=== PATIENT | male | born 1950 | race Caucasian/White ===

== ENCOUNTER 2017-01-26 12:27 | Emergency (ER) | payer MEDICARE, OTHER ==
[~2017-01-26] VITALS: Ht 180.3 cm; Wt 135.0 kg
[~2017-01-26 12:27] MED LIST: ASPIR-LOW81 MG PO; ASPIRIN 32325 MG/TAB PO; CEFTIN500 MG PO; CENTRUM SILVER1 TA1 PO; FISH OIL CONC1000 MG PO; FISH OIL1 IU PO; FLOMAX 0.40.4 MG/CAP PO; GLUCOSAMINE PO; IBUPROFEN600 MG PO; LEVAQUIN 5500 MG/TAB PO; LEVAQUIN 750MG750 M1 PO; LOPID 600M600 MG/TAB PO; LOPRESSOR 225 MG/TAB PO; LOPRESSOR 550 MG/TAB PO; MAG-OX 400400 MG/TAB PO; MAGNESIUM PO; MICARDIS HCT 121 TAB PO; MOTRIN 600600 MG/TAB PO; MVI; NIASPAN 500MG500 MG PO; NITROSTAT0.4 MG/TAB SL; NORCO 325 MG-51 TAB PO; OMEGA 31000 MG PO; PERCOCET 325 MG1 TA2 PO; PLAVIX 75MG TAB75 MG PO; TRILIPIX 135MG PO; ZESTRIL 10MG10 MG PO; ZOFRAN 4MG T4 MG/TAB PO; [UNRECOGNIZED DRUG - OTHER] PO
[2017-01-26 12:35] VITALS: TEMP 97
[2017-01-26 12:51] LABS: BASO # 0.1 (0.0-0.2); EOS # 0.2 (0.0-0.7); EOS % 2.5 % (0-4.0); GRAN % 49.6 % (42.2-75.2); HEMATOCRIT 44.3 % (42.0-52.0); HEMOGLOBIN 15.9 g/dl (13.5-18.0); LYMPH # 2.4 (1.2-3.4); LYMPH % 39.6 % (20.0-51.0); MEAN CELL VOLUME 96 fl (80.0-100.0); MEAN CORPUSCULAR HEMOGLOBIN 35 pg (27.0-31.0); MEAN CORPUSCULAR HGB CONC 36 g/dl (33.0-37.0); MEAN PLATELET VOLUME 8.6 fl (7.4-10.4); MONO # 0.4 (0.1-0.6); MONO % 7.1 % (1.7-9.3); PLATELET COUNT 225 K/mm3 (130-400); REDCELL DISTRIBUTION WIDTH-CV 12.5 % (11.5-14.5); WHITE BLOOD COUNT 5.9 K/mm3 (4.8-10.8)
[2017-01-26 12:53] LABS: INR 1.1 (0.8-3.0); PROTHROMBIN TIME 11.7 SECONDS (9.7-12.8)
[2017-01-26 13:01] LABS: ADJUSTED CALCIUM 9.5 mg/dL (8.4-10.2); ALANINE AMINOTRANSFERASE 33 U/L (21-72); ALBUMIN 4.3 gm/dL (3.5-5.0); ALKALINE PHOSPHATASE 83 U/L (50-136); ANION GAP 12 mmol/L (7-16); BILIRUBIN,TOTAL 0.7 mg/dL (0.0-1.0); BLOOD UREA NITROGEN 19 mg/dL (9-20); CALCIUM 9.7 mg/dL (8.4-10.2); CARBON DIOXIDE 23 mmol/L (22-30); CHLORIDE 104 mmol/L (98-107); CREATININE, serum 0.84 mg/dL (0.66-1.25); GLUCOSE 133 mg/dL (74-106); LIPASE 121 U/L (23-300); MAGNESIUM 1.9 mg/dL (1.6-2.3); POTASSIUM 3.9 mmol/L (3.4-5.0); SODIUM 139 mmol/L (137-145); TOTAL PROTEIN 7.2 gm/dL (6.4-8.2)
[2017-01-26 13:13] LABS: B-TYPE NATRIURETIC PEPTIDE 158 pg/mL (0-125)
[2017-01-26 13:14] LABS: TROPONIN-I < 0.012 ng/mL (0.000-0.034)
[2017-01-26 15:22] VITALS: BP 174/104; PULSE 84
== END 2017-01-26 15:23 | disposition short-term general hospital (02) ==
LOC: COL.ER 12:27
PROVIDERS: Emergency Medicine
DX: I48.92 Unspecified atrial flutter (principal); R07.9 Chest pain, unspecified; I10 Essential (primary) hypertension; I25.10 Atherosclerotic heart disease of native coronary artery without angina pectoris; Z95.5 Presence of coronary angioplasty implant and graft

== ENCOUNTER 2017-03-15 20:21 | Emergency (ER) | payer MEDICARE, OTHER ==
[~2017-03-15] VITALS: Ht 180.3 cm; Wt 125.0 kg
[2017-03-15 20:23] VITALS: BP 149/83; PULSE 74; TEMP 99
[2017-03-15] MEDS ORDERED: ELIQUIS 5MG PO (20:51)
[2017-03-15] MEDS ORDERED: ASPIRIN E.C. 8181 MG PO (20:52)
[2017-03-15] MEDS ORDERED: PLAVIX 75MG TAB75 MG PO (20:53)
[2017-03-15] MEDS ORDERED: LIPITOR 40MG TA40 MG PO (20:53)
[2017-03-15] MEDS ORDERED: TOPROL XL 25MG25 MG PO (20:54)
[2017-03-15] MEDS ORDERED: TRILIPIX 135MG PO (20:54)
[2017-03-15] MEDS ORDERED: OMEGA-3 1000 MG1 CAP PO (20:55)
[2017-03-15] MEDS ORDERED: COMPLETE SENIOR1 TA1 PO (20:56)
[2017-03-15] MEDS ORDERED: MAGNESIUM500 MG PO (20:56)
== END 2017-03-15 20:45 | disposition home or self-care (01) ==
LOC: COL.ER 20:21
DX: S90.112A Contusion of left great toe without damage to nail, initial encounter (principal); I48.91 Unspecified atrial fibrillation; Z79.01 Long term (current) use of anticoagulants; X58.XXXA Exposure to other specified factors, initial encounter; I10 Essential (primary) hypertension; I25.10 Atherosclerotic heart disease of native coronary artery without angina pectoris

== ENCOUNTER 2017-03-19 05:38 | Emergency (ER) | payer MEDICARE, OTHER ==
[~2017-03-19] VITALS: Ht 180.3 cm; Wt 125.0 kg
[~2017-03-19 05:38] MED LIST changes: +ASPIRIN E.C. 8181 MG PO; +COMPLETE SENIOR1 TA1 PO; +ELIQUIS 5MG PO; +LIPITOR 40MG TA40 MG PO; +MAGNESIUM500 MG PO; +OMEGA-3 1000 MG1 CAP PO; +TOPROL XL 25MG25 MG PO
[2017-03-19 05:41] VITALS: TEMP 97.7
[2017-03-19 06:24] LABS: BASO % 0.6 % (0.0-2.0); EOS # 0.2 (0.0-0.7); EOS % 2.5 % (0-4.0); GRAN # 3.4 (1.4-6.5); GRAN % 53.2 % (42.2-75.2); HEMATOCRIT 41.3 % (42.0-52.0); HEMOGLOBIN 14.5 g/dl (13.5-18.0); LYMPH # 2.3 (1.2-3.4); MEAN CELL VOLUME 96 fl (80.0-100.0); MEAN CORPUSCULAR HEMOGLOBIN 34 pg (27.0-31.0); MEAN CORPUSCULAR HGB CONC 35 g/dl (33.0-37.0); MEAN PLATELET VOLUME 8.7 fl (7.4-10.4); MONO # 0.5 (0.1-0.6); MONO % 7.5 % (1.7-9.3); PLATELET COUNT 218 K/mm3 (130-400); RED BLOOD COUNT 4.29 M/mm3 (4.20-5.60); REDCELL DISTRIBUTION WIDTH-CV 12.6 % (11.5-14.5); WHITE BLOOD COUNT 6.4 K/mm3 (4.8-10.8)
[2017-03-19 06:40] LABS: ADJUSTED CALCIUM 9.3 mg/dL (8.4-10.2); ALANINE AMINOTRANSFERASE 45 U/L (21-72); ALBUMIN 4.2 gm/dL (3.5-5.0); ALKALINE PHOSPHATASE 60 U/L (50-136); ANION GAP 12 mmol/L (7-16); BILIRUBIN,TOTAL 1.1 mg/dL (0.0-1.0); BLOOD UREA NITROGEN 15 mg/dL (9-20); CALCIUM 9.5 mg/dL (8.4-10.2); CARBON DIOXIDE 22 mmol/L (22-30); CHLORIDE 103 mmol/L (98-107); CREATININE, serum 0.75 mg/dL (0.66-1.25); GLUCOSE 117 mg/dL (74-106); LIPASE 75 U/L (23-300); POTASSIUM 3.6 mmol/L (3.4-5.0); SODIUM 138 mmol/L (137-145)
[2017-03-19 06:42] LABS: C-REACTIVE PROTEIN < 0.5 mg/dL (0.0-0.9)
[2017-03-19 07:51] LABS: PH 7 (5-8); SQUAMOUS EPITHELIAL None Seen /hpf; URINE APPEARANCE Cloudy; URINE BACTERIA None Seen /hpf; URINE BILIRUBIN Negative (NEGATIVE); URINE BLOOD 3+ (NEGATIVE); URINE COLOR Yellow; URINE GLUCOSE Negative (NEGATIVE); URINE KETONE Negative (NEGATIVE); URINE RBC >50 /hpf; URINE UROBILINOGEN Negative (NEGATIVE)
[2017-03-19] MEDS ORDERED: ZOFRAN 4MG T4 MG/TAB PO (08:15)
[2017-03-19] MEDS ORDERED: FLOMAX 0.40.4 MG/CAP PO (08:15)
[2017-03-19] MEDS ORDERED: NORCO 325 MG-51 TAB PO (08:15)
[2017-03-19 08:25] VITALS: BP 141/94; PULSE 72
== END 2017-03-19 08:31 | disposition home or self-care (01) ==
LOC: COL.ER 05:38
PROVIDERS: Emergency Medicine
DX: N20.1 Calculus of ureter (principal); Z79.01 Long term (current) use of anticoagulants; I10 Essential (primary) hypertension; I48.91 Unspecified atrial fibrillation; I25.10 Atherosclerotic heart disease of native coronary artery without angina pectoris; Z95.5 Presence of coronary angioplasty implant and graft; R10.31 Right lower quadrant pain; Z87.891 Personal history of nicotine dependence
CPT/HCPCS: J2270; J2405; J7030; Q9967

== ENCOUNTER 2017-03-22 05:11 | Day surgery (SDC) | payer MEDICARE, OTHER ==
[~2017-03-22] VITALS: Ht 180.3 cm; Wt 123.4 kg
[2017-03-22] VITALS (7 sets, daily range): BP systolic 104–151; BP diastolic 59–74; PULSE 69–76; TEMP 97.8–99.4
[2017-03-22] MEDS ORDERED: COLACE 100100 MG/CAP PO (06:32)
[2017-03-22] MEDS ORDERED: PERCOCET 325 MG1 TA2 PO (06:33)
[2017-03-22] MEDS ORDERED: LEVAQUIN 5500 MG/TA1 PO (06:34)
== END 2017-03-22 11:00 | disposition home or self-care (01) ==
LOC: SDCO 05:11
DX: N20.1 Calculus of ureter (principal); I20.9 Angina pectoris, unspecified; I48.91 Unspecified atrial fibrillation; Z79.01 Long term (current) use of anticoagulants; I10 Essential (primary) hypertension; I25.10 Atherosclerotic heart disease of native coronary artery without angina pectoris; E78.1 Pure hyperglyceridemia; Z96.652 Presence of left artificial knee joint; Z95.5 Presence of coronary angioplasty implant and graft; Z87.891 Personal history of nicotine dependence; Z80.3 Family history of malignant neoplasm of breast; Z80.0 Family history of malignant neoplasm of digestive organs; H91.90 Unspecified hearing loss, unspecified ear; N39.0 Urinary tract infection, site not specified; I73.9 Peripheral vascular disease, unspecified; G47.33 Obstructive sleep apnea (adult) (pediatric); E66.01 Morbid (severe) obesity due to excess calories; M47.897 Other spondylosis, lumbosacral region; M10.9 Gout, unspecified; G89.29 Other chronic pain
CPT/HCPCS: C1769; C2617; J0690; J1100; J1885; J2405; J2704; J3010; J7120; Q9967

== ENCOUNTER 2017-05-03 11:43 | Outpatient (RCR) | payer MEDICARE, OTHER ==
[~2017-05-03 11:43] MED LIST changes: +COLACE 100100 MG/CAP PO; +LEVAQUIN 5500 MG/TA1 PO
== END 2017-05-05 | disposition home or self-care (01) ==
LOC: COL.CR
DX: Z48.812 Encounter for surgical aftercare following surgery on the circulatory system (principal); Z95.5 Presence of coronary angioplasty implant and graft

== ENCOUNTER 2017-05-15 11:52 | Outpatient (RCR) | payer MEDICARE, OTHER | END 2017-05-17 05:53 | disposition home or self-care (01) | LOC: COL.CR 11:52 | DX: Z48.812 Encounter for surgical aftercare following surgery on the circulatory system (principal); Z95.5 Presence of coronary angioplasty implant and graft ==

== ENCOUNTER 2017-05-22 05:04 | Day surgery (SDC) | payer MEDICARE, OTHER ==
[~2017-05-22] VITALS: Ht 182.9 cm; Wt 121.0 kg
[2017-05-22] VITALS (7 sets, daily range): BP systolic 108–127; BP diastolic 64–88; PULSE 63–78; TEMP 97.6–97.7
== END 2017-05-22 12:00 | disposition home or self-care (01) ==
LOC: SDCO 05:04
DX: N20.1 Calculus of ureter (principal); I48.91 Unspecified atrial fibrillation; I25.119 Atherosclerotic heart disease of native coronary artery with unspecified angina pectoris; I10 Essential (primary) hypertension; I25.2 Old myocardial infarction; G47.33 Obstructive sleep apnea (adult) (pediatric); E78.1 Pure hyperglyceridemia; M19.90 Unspecified osteoarthritis, unspecified site; N40.0 Benign prostatic hyperplasia without lower urinary tract symptoms; E66.01 Morbid (severe) obesity due to excess calories; Z95.5 Presence of coronary angioplasty implant and graft; Z96.652 Presence of left artificial knee joint; Z79.01 Long term (current) use of anticoagulants; Z87.891 Personal history of nicotine dependence; Z80.3 Family history of malignant neoplasm of breast; Z80.0 Family history of malignant neoplasm of digestive organs; Z82.49 Family history of ischemic heart disease and other diseases of the circulatory system
CPT/HCPCS: C1769; C2617; J0690; J1100; J2405; J2704; J3010; J7120

== ENCOUNTER 2018-12-01 23:35 | Emergency (ER) | payer MEDICARE, OTHER ==
[~2018-12-01] VITALS: Ht 180.3 cm; Wt 115.9 kg
[2018-12-01 23:38] VITALS: TEMP 97.7
[2018-12-02 00:32] LABS: BASO % 0.5 % (0.0-2.0); EOS # 0.4 (0.0-0.7); EOS % 4.3 % (0-4.0); GRAN # 5.3 (1.4-6.5); GRAN % 63.4 % (42.2-75.2); HEMATOCRIT 35.5 % (42.0-52.0); HEMOGLOBIN 12.6 g/dl (13.5-18.0); LYMPH # 1.7 (1.2-3.4); LYMPH % 20.1 % (20.0-51.0); MEAN CELL VOLUME 97 fl (80.0-100.0); MEAN CORPUSCULAR HEMOGLOBIN 34 pg (27.0-31.0); MEAN CORPUSCULAR HGB CONC 36 g/dl (33.0-37.0); MEAN PLATELET VOLUME 8.9 fl (7.4-10.4); MONO # 0.9 (0.1-0.6); MONO % 11.1 % (1.7-9.3); PLATELET COUNT 228 K/mm3 (130-400); RED BLOOD COUNT 3.68 M/mm3 (4.20-5.60); REDCELL DISTRIBUTION WIDTH-CV 12.7 % (11.5-14.5)
[2018-12-02 00:43] LABS: ALBUMIN 3.7 gm/dL (3.5-5.0); BILIRUBIN,TOTAL 0.8 mg/dL (0.0-1.0); CALCIUM 9.1 mg/dL (8.4-10.2); CREATININE, serum 0.76 mg/dL (0.66-1.25); MAGNESIUM 2.3 mg/dL (1.6-2.3); POTASSIUM 4.1 mmol/L (3.4-5.0); TOTAL PROTEIN 6.5 gm/dL (6.4-8.2)
[2018-12-02] MEDS ORDERED: FLEXERIL 1010 MG/TAB PO (01:20)
[2018-12-02 01:30] VITALS: BP 123/69; PULSE 82
== END 2018-12-02 01:36 | disposition home or self-care (01) ==
LOC: COL.ER 23:35
PROVIDERS: Emergency Medicine
DX: T81.9XXA Unspecified complication of procedure, initial encounter (principal); R25.2 Cramp and spasm; I25.10 Atherosclerotic heart disease of native coronary artery without angina pectoris; Z79.01 Long term (current) use of anticoagulants; I10 Essential (primary) hypertension; E78.5 Hyperlipidemia, unspecified; Z87.442 Personal history of urinary calculi; Z95.9 Presence of cardiac and vascular implant and graft, unspecified; Z87.891 Personal history of nicotine dependence; Z79.82 Long term (current) use of aspirin

== ENCOUNTER 2023-09-30 18:19 | Emergency (ER) | payer MEDICARE, OTHER ==
[~2023-09-30] VITALS: Ht 182.9 cm; Wt 110.9 kg
[~2023-09-30 18:19] MED LIST changes: +FLEXERIL 1010 MG/TAB PO
[2023-09-30 19:12] LABS: BASO % 0.4 % (0.0-2.0); EOS % 0.3 % (0.0-4.0); GRAN # 7.4 K/mm3 (1.4-6.5); GRAN % 76.6 % (42.2-75.2); HEMOGLOBIN 14.9 g/dl (13.5-18.0); LYMPH # 1.2 K/mm3 (1.2-3.4); LYMPH % 12.9 % (20.0-51.0); MEAN CELL VOLUME 98 fl (80.0-100.0); MEAN CORPUSCULAR HEMOGLOBIN 34 pg (27-31); MEAN CORPUSCULAR HGB CONC 35 g/dl (33.0-37.0); MONO # 0.9 K/mm3 (0.1-0.6); MONO % 9.3 % (1.7-9.3); PLATELET COUNT 166 K/mm3 (130-400); RED BLOOD COUNT 4.41 M/mm3 (4.20-5.60); REDCELL DISTRIBUTION WIDTH-CV 13.2 % (11.5-14.5)
[2023-09-30 19:29] LABS: ALBUMIN 3.6 gm/dL (3.4-4.8); BILIRUBIN,TOTAL 1.1 mg/dL (0.2-1.2); CREATININE, serum 0.7 mg/dL (0.72-1.25); POTASSIUM 3.7 mmol/L (3.5-4.5); TOTAL PROTEIN 6.7 gm/dL (6.2-8.1)
[2023-09-30] MEDS ORDERED: ZITHROMAX Z PA250 MG PO (20:07)
[2023-09-30 20:22] VITALS: BP 139/82; PULSE 87; TEMP 97.3
== END 2023-09-30 20:22 | disposition home or self-care (01) ==
LOC: COL.ER 18:19
PROVIDERS: Family Medicine
DX: J20.9 Acute bronchitis, unspecified (principal)
CPT/HCPCS: J7030

== ENCOUNTER 2024-01-03 10:43 | Observation (INO) | payer MEDICARE, OTHER ==
[~2024-01-03] VITALS: Ht 180.3 cm; Wt 117.2 kg
[~2024-01-03 10:43] MED LIST changes: +ASPIRIN 81M81 MG/TA2 PO; -ASPIRIN E.C. 8181 MG PO; +MAGNESIUM200 MG PO; -MAGNESIUM500 MG PO; +ZITHROMAX Z PA250 MG PO
[2024-01-03 11:14] LABS: BASO # 0.1 K/mm3 (0.0-0.2); EOS # 0.1 K/mm3 (0.0-0.7); GRAN # 5.9 K/mm3 (1.4-6.5); GRAN % 70.8 % (42.2-75.2); HEMATOCRIT 43.7 % (42.0-52.0); HEMOGLOBIN 15.2 g/dl (13.5-18.0); LYMPH # 1.5 K/mm3 (1.2-3.4); LYMPH % 18.5 % (20.0-51.0); MEAN CELL VOLUME 97 fl (80.0-100.0); MEAN CORPUSCULAR HEMOGLOBIN 34 pg (27-31); MEAN CORPUSCULAR HGB CONC 35 g/dl (33.0-37.0); MEAN PLATELET VOLUME 8.5 fl (7.4-10.4); MONO # 0.7 K/mm3 (0.1-0.6); PLATELET COUNT 273 K/mm3 (130-400); RED BLOOD COUNT 4.52 M/mm3 (4.20-5.60); REDCELL DISTRIBUTION WIDTH-CV 13.2 % (11.5-14.5)
[2024-01-03] MEDS ORDERED: NS 1,000 ML IV ONE (11:15)
[2024-01-03] MEDS ORDERED: Morphine 4 MG/ML VIAL IV ONE (11:15)
[2024-01-03] MEDS ORDERED: Acetaminophen 325 MG TAB PO ONE (11:15)
[2024-01-03 11:29] LABS: INR 1.5 (0.8-3.0); PROTHROMBIN TIME 16.6 SECONDS (9.7-12.8)
[2024-01-03 11:48] LABS: ALBUMIN 3.6 g/dL (3.4-4.8); BILIRUBIN,TOTAL 1.1 mg/dL (0.2-1.2); C-REACTIVE PROTEIN 1.8 mg/dL (0.00-0.50); CALCIUM 9.5 mg/dL (8.4-10.2); CREATININE, serum 0.7 mg/dL (0.72-1.25); TOTAL PROTEIN 6.9 g/dl (6.2-8.1)
[2024-01-03 13:00] VITALS: BP_SYST 158
[2024-01-03] MEDS ORDERED: LORazepam 2 MG/ML 1 ML VIAL IV ONE (13:15)
[2024-01-03] MEDS ORDERED: fentaNYL 50 MCG/ML 2 ML VIAL IV ONE (13:15)
[2024-01-03] MEDS ORDERED: NATURAL IRON65 MG PO (14:13)
[2024-01-03] MEDS ORDERED: SINEMET 25/101 UDTAB PO (16:13)
[2024-01-03] MEDS ORDERED: Docusate Sodium 100 MG CAP PO PRN (16:30)
[2024-01-03] MEDS ORDERED: Ondansetron 4 MG/2 ML VIAL IV PRN (16:30)
[2024-01-03] MEDS ORDERED: Polyethylene Glycol 3350 17 GM PDS PO PRN (16:30)
[2024-01-03] MEDS ORDERED: oxyCODONE 5 MG TAB PO PRN ×2 (16:45)
[2024-01-03] MEDS ORDERED: fentaNYL 50 MCG/ML 2 ML VIAL IV PRN ×2 (16:45→17:00)
[2024-01-03 16:52] VITALS: BP 154/74; PULSE 93; TEMP 97.3
[2024-01-03] MEDS ORDERED: Acetaminophen 500 MG TAB PO SCH (17:00)
[2024-01-03 17:22] VITALS: BP_SYST 154
--- NOTE | 2024-01-03 18:30 | NUR ---
Patient admitted to room 327. Alert and oriented. Supportive at bedside. Med rec completed with patient and . Dinner ordered and he tolerated well. Pain managed at this time with scheduled tylenol. Brusing noted to Right hip and thigh. Dressing intact. Will report off to nightnurse
[2024-01-03 19:54] VITALS: BP 122/71; PULSE 83; TEMP 98.1
[2024-01-03 20:00] VITALS: BP_SYST 122
[2024-01-03] MEDS ORDERED: Apixaban 5 MG TAB PO SCH (21:00)
[2024-01-04] VITALS (13 sets, daily range): BP systolic 110–144; BP diastolic 62–78; PULSE 61–85; TEMP 97.4–98.1
[2024-01-04 06:56] LABS: BASO # 0.1 K/mm3 (0.0-0.2); BASO % 0.7 % (0.0-2.0); EOS # 0.1 K/mm3 (0.0-0.7); EOS % 1.2 % (0.0-4.0); LYMPH # 1.5 K/mm3 (1.2-3.4); LYMPH % 15.7 % (20.0-51.0); MEAN CELL VOLUME 97 fl (80.0-100.0); MEAN CORPUSCULAR HGB CONC 34 g/dl (33.0-37.0); MEAN PLATELET VOLUME 9.1 fl (7.4-10.4); MONO # 0.6 K/mm3 (0.1-0.6); MONO % 6.7 % (1.7-9.3); PLATELET COUNT 255 K/mm3 (130-400); RED BLOOD COUNT 3.54 M/mm3 (4.20-5.60); REDCELL DISTRIBUTION WIDTH-CV 13.2 % (11.5-14.5)
--- NOTE | 2024-01-04 07:00 | NUR ---
PATIENT AWAKE AND ALERT, SITTING UP I BED. PATIENT DENIES ANY NEEDS OR COMPLAINTS AT THIS TIME. FALL PRECAUTIONS IN PLACE. CALL LIGHT WITHI REACH.
[2024-01-04 07:16] LABS: CALCIUM 8.5 mg/dL (8.4-10.2); CREATININE, serum 0.65 mg/dL (0.72-1.25); POTASSIUM 3.8 mEq/L (3.5-4.5)
[2024-01-04 07:38] LABS: HEMATOCRIT 34.3 % (42.0-52.0); HEMOGLOBIN 11.8 g/dl (13.5-18.0); MEAN CORPUSCULAR HEMOGLOBIN 33 pg (27-31)
--- NOTE | 2024-01-04 07:51 | NUR ---
PATIENT ASSESSMENT COMPLETE. SWELLING AND TIGHTNESS NOTED TO R HIP. RLE ELEVATED AND ICE PLACED TO R HIP. PATIENT STATED TYLENOL HELPS THE BEST WITH PAIN. PATIENT SAT UP EATING BREAKFAST. PATIENT DENIES ANY NEEDS OR COMPLAINTS AT THIS TIME. FALL PRECAUTIONS IN PLACE. CALL LIGHT WIHTIN REACH.
[2024-01-04] MEDS ORDERED: Polyethylene Glycol 3350 17 GM PDS PO SCH (11:08)
[2024-01-04] MEDS ORDERED: Ketorolac 15 MG/ML VIAL IV ONE (11:15)
--- NOTE | 2024-01-04 12:56 | NUR ---
Data: Patient declined Machine Etcher services offered during Machine Etcher rounds because his was visiting. He wanted to spend time with her. Plan of Care: Chaplains will remain available as needed/requested while Patient is admitted to this hospital.
--- NOTE | 2024-01-04 15:09 | NUR ---
Advanced Manufacturing Associate met with patient and at bedside to discuss discharge planning. Patient and /ANNEMARIE Irvin ([phone]) live in [place]. Patient sees Dr. Pratt as his PCP and uses [facility]. Patient has a walker cane, shower chair, grab bars and CPAP at home. Patient states he is independent with all activities and has been attending OP physical therapy since his surgery last week. Patient plans to resume OP PT at discharge. No other needs identified at this time. Discharge plan: home with OP therapy
--- NOTE | 2024-01-04 16:50 | NUR ---
PATIENT VOICES GOOD PAIN CONTROL WITH ELIJAH HOSE STOCKINGS AND ICE TO R HIP. RICARDONET DENIES ANY NEEDS OR COMPLAINTS AT THIS TIME. CALL LIGHT WITHIN REACH, FALL PRECAUTIONS
[2024-01-04] MEDS ORDERED: Sennosides/Docusate 8.6-50 MG TAB PO SCH (21:00)
[2024-01-05] VITALS (12 sets, daily range): BP systolic 119–155; BP diastolic 68–84; PULSE 71–87; TEMP 97.3–98.5
[2024-01-05 06:30] LABS: BASO # 0.1 K/mm3 (0.0-0.2); BASO % 0.7 % (0.0-2.0); EOS # 0.3 K/mm3 (0.0-0.7); EOS % 3.1 % (0.0-4.0); GRAN % 67.8 % (42.2-75.2); HEMOGLOBIN 11.7 g/dl (13.5-18.0); LYMPH # 1.9 K/mm3 (1.2-3.4); LYMPH % 21.1 % (20.0-51.0); MEAN CELL VOLUME 96 fl (80.0-100.0); MEAN CORPUSCULAR HEMOGLOBIN 34 pg (27-31); MEAN CORPUSCULAR HGB CONC 35 g/dl (33.0-37.0); MEAN PLATELET VOLUME 9.1 fl (7.4-10.4); MONO # 0.6 K/mm3 (0.1-0.6); MONO % 6.7 % (1.7-9.3); PLATELET COUNT 267 K/mm3 (130-400); RED BLOOD COUNT 3.47 M/mm3 (4.20-5.60); REDCELL DISTRIBUTION WIDTH-CV 13.2 % (11.5-14.5)
[2024-01-05 06:44] LABS: HEMATOCRIT 33.4 % (42.0-52.0)
[2024-01-05 06:52] LABS: CALCIUM 8.4 mg/dL (8.4-10.2); CREATININE, serum 0.65 mg/dL (0.72-1.25); POTASSIUM 3.8 mEq/L (3.5-4.5)
--- NOTE | 2024-01-05 09:31 | NUR ---
Patient alert and oriented x4. Shift assessment complete, denies need for PRN pain medication this morning. Right hip site CDI. Edema noted to bilateral lower extremities, SCDs and ELIJAH hose on. States last BM was two days ago, scheduled miralax administered in water. Voiding with urinal. States he is ready to be at home, does want to continue PT. Call light within reach, all needs met at this time.
[2024-01-05 15:12] LABS: COLLECTION METHOD CLEAN CATCH
[2024-01-05 15:17] LABS: URINE APPEARANCE CLEAR (CLEAR/HAZY); URINE BLOOD NEGATIVE (NEGATIVE); URINE COLOR YELLOW (YELLOW); URINE GLUCOSE NEGATIVE (NEGATIVE); URINE KETONE NEGATIVE (NEGATIVE); URINE NITRATE NEGATIVE (NEGATIVE); URINE PROTEIN(semi-quant) NEGATIVE (NEGATIVE)
--- NOTE | 2024-01-05 17:38 | NUR ---
Notified by [facility] that patient voiced concerns with voiding. States he has had trouble voiding and emptying bladder. Per PA patient states he hasn't voided in a while. Patient voids 100-400ml every 1-2hr in urinal noted by this nurse and PCT. Urine is yellow and clear. PRN bladderscan ordered and UA. UA obtained and noted to be negative. Patient has continued to void, stated to PCT he has to pee "every 10 minutes it feels like." Patient complains of pain to right hip increasing, PRN roxicodone and scheduled tylenol administered. Resting in bed with call light in reach, all needs met at this time.
--- NOTE | 2024-01-05 18:22 | NUR ---
Patient complains of increased stiffness and pain to right leg. Area swollen and bruised, no redness noted. No increased warmth noted. Patient wanted ankle range of motion performed for him, this nurse rotated ankle a few times which patient states helped. SCDs put back on patient, right lower extremity elevated with pillows. Call light within reach, all needs met at this time.
[2024-01-06] VITALS (7 sets, daily range): BP systolic 119–155; BP diastolic 72–81; PULSE 76–93; TEMP 97.5–98.2
[2024-01-06 06:22] LABS: BASO # 0.1 K/mm3 (0.0-0.2); BASO % 0.8 % (0.0-2.0); EOS # 0.2 K/mm3 (0.0-0.7); EOS % 2.5 % (0.0-4.0); GRAN # 6.2 K/mm3 (1.4-6.5); GRAN % 67.8 % (42.2-75.2); HEMOGLOBIN 10.7 g/dl (13.5-18.0); LYMPH % 21.5 % (20.0-51.0); MEAN CELL VOLUME 98 fl (80.0-100.0); MEAN CORPUSCULAR HEMOGLOBIN 34 pg (27-31); MEAN CORPUSCULAR HGB CONC 34 g/dl (33.0-37.0); MEAN PLATELET VOLUME 9.2 fl (7.4-10.4); MONO # 0.6 K/mm3 (0.1-0.6); MONO % 6.7 % (1.7-9.3); PLATELET COUNT 298 K/mm3 (130-400); RED BLOOD COUNT 3.19 M/mm3 (4.20-5.60); REDCELL DISTRIBUTION WIDTH-CV 13.4 % (11.5-14.5)
[2024-01-06 06:26] LABS: HEMATOCRIT 31.1 % (42.0-52.0)
[2024-01-06 06:30] LABS: CALCIUM 8.8 mg/dL (8.4-10.2); CREATININE, serum 0.64 mg/dL (0.72-1.25); POTASSIUM 3.9 mEq/L (3.5-4.5)
--- NOTE | 2024-01-06 09:11 | NUR ---
Patient alert and oriented x4. Pain 6/10. Medicaitons taken PO. Right hip dressing intact, no redness, or swelling around dressing. Patient states pain in right thigh to knee, edema on right lower extremity, no pitting. Bilateral lower extermity skin red in color, intact. ELIJAH hose in place, BLE. Call light in reach.
[2024-01-06] MEDS ORDERED: ROXICODONE 55 MG/TAB PO (11:46)
[2024-01-06] MEDS ORDERED: TYLENOL 500MG500 MG PO (11:46)
[2024-01-06] MEDS ORDERED: DAZIDOX10 MG PO (11:46)
--- NOTE | 2024-01-06 13:31 | NUR ---
[employer] spoke with [facility] Director, Radhika who received referral for patient over the weekend. Radhika advised they are able to accept today. Patient's was at bedside when Radhika met with patient. Discharge Plan: [facility] Today
--- NOTE | 2024-01-06 14:00 | NUR ---
PATIENT DISCHARGED TO [facility] ROOM 336. BELONGINGS BROUGHT TO ROOM 336. THERAPY IN ROOM TO TAKE PATIENT TO SHOWER ROOM.
== END 2024-01-06 14:01 ==
LOC: COL.ER 10:43 → SURG 15:14
PROVIDERS: Emergency Medicine; Physician Assistant; ADMIT Internal Medicine
DX: T84.84XA Pain due to internal orthopedic prosthetic devices, implants and grafts, initial encounter (principal); T84.89XA Other specified complication of internal orthopedic prosthetic devices, implants and grafts, initial encounter; M79.604 Pain in right leg; G20.A1 Parkinson's disease without dyskinesia, without mention of fluctuations; I48.91 Unspecified atrial fibrillation; I25.10 Atherosclerotic heart disease of native coronary artery without angina pectoris; K59.00 Constipation, unspecified; R35.0 Frequency of micturition; Z95.5 Presence of coronary angioplasty implant and graft; Z79.899 Other long term (current) drug therapy; Z87.891 Personal history of nicotine dependence; Z79.01 Long term (current) use of anticoagulants; Y83.8 Other surgical procedures as the cause of abnormal reaction of the patient, or of later complication, without mention of misadventure at the time of the procedure; Z96.651 Presence of right artificial knee joint
CPT/HCPCS: G0378; J1885; J2060; J2270; J3010; J7030